=== PATIENT | male | born 2000 | race Hispanic/Latino ===

== ENCOUNTER 2024-06-27 00:56 | Emergency (ER) | payer OTHER ==
[~2024-06-27] VITALS: Ht 185.4 cm; Wt 140.6 kg
[2024-06-27] MEDS ORDERED: IOHEXOL-350 75 ML VIAL IV ONE (00:57)
[2024-06-27] MEDS: ondanSETRON 4MG INJ IVP ONE (01:37)
[2024-06-27] MEDS: ketOROlac 15MG/ML VIAL (15MG/ML) IV ONE (01:37)
[2024-06-27] MEDS: FAMOTIDINE 20MG VIAL IV ONE (01:37)
[2024-06-27 01:45] LABS: BASOPHILS # (AUTO) 0.02 K/uL (0.00-0.20); BASOPHILS % (AUTO) 0.2 % (0.0-5.0); HEMATOCRIT 48.9 % (42-54); IMMATURE GRANULOCYTE ABSOLUTE 0.02 K/uL (0-1); LYMPHOCYTES # (AUTO) 0.6 K/uL (1.0-4.8); LYMPHOCYTES % (AUTO) 6.5 % (21.0-51.0); MEAN CORPUSCULAR HEMOGLOBIN 30.2 pg (27.0-33.0); MEAN CORPUSCULAR HGB CONC 33.7 g/dL (32.0-36.0); MEAN CORPUSCULAR VOLUME 89.6 fL (79-99); MONOCYTES # (AUTO) 0.4 K/uL (0.1-1.0); MONOCYTES % (AUTO) 4.4 % (3.0-13.0); NEUTROPHILS # (AUTO) 7.9 K/uL (1.8-7.7); NEUTROPHILS % (AUTO) 88.7 % (40.0-77.0); PLATELET COUNT (AUTO) 216 K/uL (130-400); RED BLOOD CELL COUNT(AUTO) 5.46 MIL/uL (4.50-6.20); RED CELL DISTRIBUTION WIDTH 12.1 % (11.0-15.5); WHITE BLOOD COUNT (AUTO) 8.9 K/uL (4.8-10.8)
[2024-06-27 01:48] LABS: RAPID GROUP A STREP negative (NEGATIVE)
[2024-06-27 01:50] LABS: APPEARANCE,URINE CLEAR (CLEAR); BILIRUBIN,URINE NEGATIVE (NEGATIVE); COLOR,URINE YELLOW (YELLOW); GLUCOSE, URINE (UA) NEGATIVE (NEGATIVE); KETONES,URINE NEGATIVE (NEGATIVE); LEUKOCYTE ESTERASE ,URINE NEGATIVE Leu/uL (NEGATIVE); NITRATE,URINE NEGATIVE (NEGATIVE); OCCULT BLOOD,URINE SMALL (NEGATIVE); PH,URINE 5.5 (5.0-8.0); PROTEIN,URINE NEGATIVE (NEGATIVE); UROBILINOGEN,URINE 0.2 mg/dL (0.2-1.0)
[2024-06-27 01:53] LABS: ADD UA MICROSCOPIC YES
[2024-06-27 01:54] LABS: BACTERIA,URINE RARE /HPF (None Seen); MUCUS,URINE RARE LPF (None Seen); WBC,URINE 0-1 /HPF (0-1)
[2024-06-27 01:58] LABS: INFLUENZA TYPE A Negative For Type A (NEGATIVE); INFLUENZA TYPE B Negative For Type B (NEGATIVE)
[2024-06-27 01:59] LABS: CREATININE 0.9 mg/dL (0.5-1.3); POTASSIUM 3.5 mmol/L (3.5-5.1)
[2024-06-27 02:03] LABS: ALBUMIN 3.4 g/dL (3.5-5.0); BILIRUBIN,DIRECT 0.3 mg/dL (0.0-0.3); BILIRUBIN,TOTAL 2.2 mg/dL (0.2-1.0); TOTAL PROTEIN, SERUM 7.8 g/dL (6.0-8.3)
[2024-06-27 03:03] LABS: SARS-CoV-2, RNA, NAAT NEGATIVE SARS CoV-2 (NEGATIVE)
[2024-06-27] MEDS ORDERED: PANT40TA55 PO (05:06)
[2024-06-27 05:22] VITALS: BP 126/86; PULSE 88; RESP 20; TEMP 98.7; O2SAT 100
[2024-06-27] MEDS: MAG/ALUM/SIMETH 30 ML UDCUP PO ONE (05:22)
[2024-06-27] MEDS: LIDOCAINE HCL 2% VISCOUS 15 ML UDCUP PO ONE (05:22)
[2024-06-27] MEDS: DICYCLOMINE 20MG (10MG/ML) AMP IM ONE (05:22)
== END 2024-06-27 05:26 | disposition home or self-care (01) ==
LOC: EDH 00:56
DX: A08.4 Viral intestinal infection, unspecified (principal); E78.00 Pure hypercholesterolemia, unspecified; F84.0 Autistic disorder; K21.9 Gastro-esophageal reflux disease without esophagitis; Z20.822 Contact with and (suspected) exposure to COVID-19; Z94.81 Bone marrow transplant status; Z98.890 Other specified postprocedural states
CPT/HCPCS: 99285; 74177; 96374; 96375; 87635; 80076; 80048; 83690; 85025; 87880; 87804 ×2; 83605; 81001; 36415; 84145; 96372; J3490; J2405; J0500; J1885; Q9967